=== PATIENT | female | born 1970 | race African-American/Black ===

== ENCOUNTER 2017-08-11 12:57 | Inpatient (IN) | payer OTHER ==
[~2017-08-11] VITALS: Ht 157.5 cm; Wt 83.0 kg
--- NOTE | ~2017-08-11 | A ---
[facility] Nutrition Therapy DATE: 08/13/17 Patient: CYNDIE VERDUGO Physician: CANDICE Address: [facility] Room/Bed: [address] [place] [address], Zip: [place] [address] Admit Date: 08/11/17 Date of : [birth year] Height: 5 2 Weight: [phone] NUTRITIONAL ASSESSMENT: REASON: PT SEEN FOR 1 NUTRITION RISK POINT RELATED TO CHEWING/SWALLOWING DIFFICULTY. ADMITTED FOR PARANOID SCHIZOPHRENIA, SI, DRUG USE PMH: SI, HTN, DM, HX OF SZ Anthropometrics: PT IS 47 YO FEMALE. HT: 5'2", WT: 183LBS, BMI 33. IBW 110, 166%IBW Labs: NONE AVAILABLE Meds: PROTONIX, SEROQUEL, NOVOLOG, DILANTIN, LOPRESSOR Assessment: PT REPORTS USING CRACK DAILY. PT IS HAVING AUDITORY AND VISUAL HALLUCINATIONS. PT COMPLAINS OF NOT BEING ABLE TO EAT VERY WELL DUE TO MISSING TEETH. SHE REPORTS EATING ONLY SOME OF HER MEALS. PER CHART, PT HAS LOST 10LBS X MONTHS. PT IS ON CCD AND IS LACTOSE INTOLERANT. Dx: INADEQUATE ORAL INTAKE R/T INABILITY TO EAT AEB PT COMPLAINT OF TROUBLE EATING, PT'S LACK OF TEETH Intervention: CC DIET, SUPPLEMENTS, MEDS PER MD, PSYCH Monitoring, Evaluation and Goals: 1. ADEQUATE ORAL INTAKE OF MEALS >50% 2. PREVENT SIGNIFICANT WEIGHT LOSS MONITOR: PO/FLUID INTAKE, WEIGHT Recommendations: 1. DOWNGRADE DIET TO MECHANICAL SOFT 2. RD TO ORDER STRAWBERRY OR CHOCOLATE GLUCERNA TID 3. ENCOURAGE ADEQUATE PO INTAKE RD TO FOLLOW UP PER PROTOCOL AND PRN RELATED TO PT ON MILD NUTRITION RISK Respectfully, MARIA LUZ BLUE, RD, LD [employer] [facility] Nutrition Therapy DATE: 08/13/17 Patient: CYNDIE VERDUGO Physician: CANDICE Address: [facility] Room/Bed: [address], Zip: [place] [address] Admit Date: 08/11/17 Date of : [birth year] Height: 5 2 Weight: [phone] [facility] cc: client file
--- NOTE | ~2017-08-11 | HP ---
Unit #: [id number] #: [id number] Patient: NANETTE VERDUGO [id number] [place] [address] [id number] MR#: [id number] NAME: NANETTE VERDUGO ROOM: P254 Age: 47 Sex: F Admission Date: 08/11/2017 : 1970 Attending Physician: Maxime Yan M.D. Admitting Physician: Maxime Yan M.D. Primary Care Physician: Samira Doctor Not In System HISTORY AND PHYSICAL HISTORY OF PRESENT ILLNESS Nanette is a 47 year old admitted to [address] [place] [address] because of her drug use which includes crack cocaine. PAST MEDICAL HISTORY 1. Long history of illicit substance abuse to include crack cocaine. 2. Morbid obesity. 3. High blood pressure. 4. Diabetes mellitus, type 2. 5. COPD. PAST SURGICAL HISTORY Nothing reported. ALLERGIES Penicillin, sulfa, Darvocet, aspirin, ibuprofen, lactose, Keflex, Flexeril. SOCIAL HISTORY She does not smoke, drinks alcohol on occasion. Admits to using crack cocaine on a daily basis. FAMILY HISTORY Medically noncontributory. REVIEW OF SYSTEMS CONSTITUTIONAL: No fever or chills. HEENT: Denies any sore throat, ear pain or runny nose. CARDIOVASCULAR: Denies chest pain, irregular heart rhythm or palpitations. CHEST: Denies shortness of breath or cough. No hemoptysis. GASTROINTESTINAL: Denies nausea, vomiting, diarrhea or chronic constipation. ENDOCRINE: Denies history of increased thirst or urination. No recent significant weight loss or gain. GENITOURINARY: Denies dysuria, frequency, or hematuria. SKIN: Denies any rashes. HEMATOLOGIC: Denies history of increased bleeding or bruising. MUSCULOSKELETAL: Denies any hot, swollen joints. No generalized muscle pain. NEUROLOGIC: Denies problems with vision or speech. No frequent, severe headaches. No numbness, tingling or weakness in any extremities. Denies loss of bladder or bowel control. Unit #: [id number] #: [id number] Patient: NANETTE VERDUGO CURRENT MEDICATIONS 1. Protonix 40 mg q day 2. Seroquel 200 mg q h.s. 3. Lopressor 50 mg b.i.d. 4. Zestril 20 mg b.i.d. 5. Dilantin 100 mg q.i.d. 6. Proventil inhaler p.r.n. 7. Milk of Magnesia p.r.n. 8. Maalox p.r.n. 9. Neurontin 800 mg t.i.d. 10. Norvasc 5 mg q day PHYSICAL EXAMINATION GENERAL: Alert, morbidly obese, in no apparent distress. VITAL SIGNS: Blood pressure 186/110, heart rate 70, respirations 16, temperature 98.6. WEIGHT: 183. HEIGHT: 5 foot 2 inches. SKIN: Warm and dry without rash or lesion. HEENT: Normocephalic. TMs not viewed. Oral and nasal passages clear. Conjunctivae clear. Pupils equal, round and reactive to light and accommodation. Extraocular movements intact. NECK: Supple without lymphadenopathy or thyromegaly. HEART: Regular rate and rhythm without murmur. LUNGS: Clear. ABDOMEN: Soft, nontender. : Not done. EXTREMITIES: No evidence of cyanosis, clubbing or edema. Moves all extremities without focal deficit. NEUROLOGICAL: Grossly within normal limits. Cranial Nerves: II: Visual ruth are intact. III, IV AND : Extraocular movements are intact. Pupils are equal, round and reactive to light. V: Facial sensation is grossly normal. VII: Facial movements and expression are normal. VIII: Auditory acuity grossly intact. IX, X: Uvula is midline. Phonation is normal. XI: Patient shrugs shoulders and turns head normally. XII: Tongue protrudes in the midline. Sensory and Motor Function: Sensory and motor sensation is grossly normal. Motor: moves all extremities well. Coordination: Gait is normal. Deep Tendon Reflexes: Intact. IMPRESSION 1. Psychiatric admission. 2. High blood pressure, not controlled on admission. I suspect she has been noncompliant with her medications. 3. Seizure disorder. RECOMMENDATIONS PSYCHIATRIC: Per psychiatrist. MEDICAL: 1. I see no contraindications to participating in facility's activities. 2. Continue Lopressor, Zestril and Norvasc. Monitor blood pressure q shift. 3. Continue Dilantin. Check a Dilantin level. 4. Start Glucophage XL 500 mg 1 p.o. q day. Unit #: [id number] #: [id number] Patient: NANETTE VERDUGO MEDICAL PROGNOSIS Good. MEDICAL CONDITION Stable. Dictated by... Alexa Zaragoza P.A.-C. for Kayode Hairston/aiyana TD: 08/12/2017 19:29 JOB #: [id number] HISTORY AND PHYSICAL Page 1 of 1 X Alexa Zaragoza X HISTORY AND PHYSICAL
--- NOTE | ~2017-08-11 | PN ---
Unit #: [id number] #: [id number] Patient: CYNDIE VERDUGO [id number] [facility] [address] [place] [address] [id number] MR#: [id number] NAME: CYNDIE VERDUGO ROOM: P254 Age: 47 Sex: F Admission Date: 08/11/2017 : 1970 Attending Physician: Maxime Yan M.D. Admitting Physician: Maxime Yan M.D. Primary Care Physician: Samira Doctor Not In System MATT PROGRESS NOTES DATE 08/13/2017 DISCUSSION The patient today complains of the quality of food served at this facility yet demands that she be given double portions at the same time. The patient continues to use a wheelchair in spite of the fact that she has been ordered not to do so, we will take the patient's wheelchair away. She is, today, expressing interest in residential chemical dependence treatment related to her history of crack cocaine use and I will ask the public health social worker to see her regarding this at the same time. I have taken time today to redirect the patient's expectations of inpatient care, particularly with regards to the patient's homeless status. Dictated by... Maxime Yan M.D. CB/regla TD: 08/13/2017 13:18 JOB #: [id number] [facility] PROGRESS NOTES Page 1 of 1 X Maxime Yan MD X PROGRESS NOTE
--- NOTE | ~2017-08-11 | PA ---
Unit #: [id number] #: [id number] Patient: CYNDIE VERDUGO [id number] [facility] [address] [place] [address] [id number] I MR#: [id number] NAME: CYNDIE VERDUGO ROOM: P254 Age: 47 Sex: F Admission Date: 08/11/2017 : 1970 Date of Assessment: 08/12/2017 Attending Physician: Maxime Yan M.D. Admitting Physician: Maxime Yan M.D. Primary Care Physician: Generic Doctor Not In System PSYCHIATRIC ASSESSMENT IDENTIFYING INFORMATION The patient is a 47-year-old homeless female admitted in transfer from [place] where she had presented voicing thoughts of suicide. CHIEF COMPLAINT "I need to get back on my medicine." INFORMANT(S) Patient and chart, reliability good. HISTORY OF PRESENT ILLNESS The patient is a 47-year-old homeless female who carries a diagnosis of schizophrenia. She has been off her medications sometime per her report. This occurred after the patient was evicted from the apartment. She had occupied in [place], [place], earlier this year. She is now homeless and living in a halfway in [place]. The patient reports that she was having suicidal ideation at the time of admission, but is now reporting reduction in suicidal ideation and auditory hallucinations with reinitiation of medications. The patient also complains of severe back pain and requests initiation of "Percocet" to address. The patient denies recent changes in sleep or appetite. She has been psychiatrically hospitalized as a child at this facility in the past and was hospitalized at the psychiatric facility in [place] "several years ago." She admits to abuse of cocaine and cannabis on a daily basis stating that she is spending up to 150 dollars a day on cocaine. PAST PSYCHIATRIC HISTORY As above. PAST MEDICAL HISTORY The patient suffers from seizure disorder, diabetes mellitus, GERD, and hypertension. MEDICATIONS Dilantin, lisinopril, metoprolol, gabapentin, Prilosec, amlodipine, Seroquel, NovoLog. ALLERGIES Acetaminophen, penicillin, sulfa, Darvocet, aspirin, Keflex, ibuprofen, Flexeril, peanuts, butter, bee stings. FAMILY HISTORY Unit #: [id number] #: [id number] Patient: CYNDIE VERDUGO The patient has several family members who are on renal dialysis. SOCIAL HISTORY The patient is currently homeless and residing in a homeless halfway in [place]. SUBSTANCE ABUSE HISTORY Described previously. MENTAL STATUS EXAMINATION Examination at this time reveals the patient to be a disheveled female who is in a wheelchair. The patient is awake, alert, and oriented in all spheres. Her mood is mildly dysphoric, her affect constricted. Speech is generally well-coherent. No gross deficits in memory or cognition noted. Intelligence is judged to be in the average range based on fund of knowledge. The patient is cooperative throughout the interview. She is currently denying suicidal or homicidal ideation or psychotic features. Judgment and insight appear to be reasonably intact. ASSETS AND LIABILITIES The patient's assets: Motivation for change. Liabilities: Lack of resources. DIAGNOSTIC IMPRESSION 1. Chronic paranoid schizophrenia. 2. Cocaine use disorder. 3. Cannabis use disorder. 4. Diabetes mellitus. 5. Hypertension. 6. Gastroesophageal reflux disease. 7. Degenerative disk disease. 8. Seizure disorder. TREATMENT PLAN The patient remains hospitalized for safety and stabilization. Suicide precautions are in place. I will restart the patient's previously prescribed medications, and Naprosyn will be added on a scheduled basis for back pain. ESTIMATED LENGTH OF STAY 3 to 5 days. The followup will take place through the auspices of community mental health resources in the [facility]. Dictated by... Maxime Yan M.D. MATTHEW/celena TD: 08/12/2017 14:34 JOB #: [id number] Unit #: [id number] #: [id number] Patient: CYNDIE VERDUGO PSYCHIATRIC ASSESSMENT Page 1 of 1 X Maxime Yan MD X PSYCHIATRIC ASSESSMENT
--- NOTE | ~2017-08-11 | DS ---
Unit #: [id number] #: [id number] Patient: CYNDIE VERDUGO [id number] [facility] [address] [place] [address] [id number] MR#: [id number] NAME: CYNDIE VERDUGO ROOM: P254 Age: 47 Sex: F Admission Date: 08/11/2017 : 1970 Discharge Date: 08/13/2017 Attending Physician: Maxime Yan M.D. Primary Care Physician: Generic Doctor Not In System DISCHARGE SUMMARY REASON FOR ADMISSION The patient is a 47-year-old white female, admitted to the [facility] [place] [facility] unit after she had presented to [facility] in [place] claiming to be suicidal. HOSPITAL COURSE The patient was admitted to the [facility] [place] [facility] unit and restarted on previously prescribed home medications including Seroquel, Proventil, Dilantin, Zestril, Lopressor, Neurontin, Protonix, Norvasc, Accu-Cheks, and NovoLog. The patient insisted on using a wheelchair, but this was discontinued given the lack of medical necessity. On 08/13/2017, the patient complained of the quality and quantity of food provided, and when she learned that she would no longer be allowed to use the wheelchair, demanded discharge from the hospital. She was not at that point exhibiting any signs of psychosis and denied suicidal ideation. As per her request, discharge was ordered. FINAL DIAGNOSES Cocaine use disorder; chronic paranoid schizophrenia per patient's history; seizure disorder; hypertension; degenerative disk disease; gastroesophageal reflux disease; and diabetes mellitus. DISPOSITION ON DISCHARGE The patient is discharged on the following medications; Proventil HFA 2 puffs q.4 hours p.r.n. shortness of air, Dilantin 100 mg q.i.d. for seizure disorder, Zestril 20 mg b.i.d. for hypertension, Lopressor 50 mg b.i.d. for hypertension, Neurontin 800 mg t.i.d. daily for chronic pain, Protonix 40 mg daily for GERD, Norvasc 5 mg daily for hypertension, Accu-Cheks as ordered for diabetic management, NovoLog sliding scale for diabetic management, and Seroquel 200 mg at bedtime for psychosis. DISCHARGE INSTRUCTIONS No dietary or physical restrictions were placed upon the patient at the time of discharge. FOLLOWUP Followup will take place through the auspices of community mental health resources in the [facility]. Dictated by.Lorelei Yan M.D. Unit #: [id number] #: [id number] Patient: CYNDIE VERDUGO MATTHEW/zully TD: 08/13/2017 19:42 JOB #: [id number] DISCHARGE SUMMARY Page 1 of 1 X Maxime Yan MD X DISCHARGE SUMMARY
[2017-08-12 13:03] LABS: URINE APPEARANCE TURBID; URINE BILIRUBIN NEG (NEG); URINE BLOOD NEG (NEG); URINE COLOR YELLOW; URINE GLUCOSE 100 MG/DL (NEG); URINE KETONE NEG (NEG); URINE LEUKOCYTE ESTERASE NEG (NEG); URINE NITRATE NEG (NEG); URINE PH 5.5 (5-8); URINE PROTEIN NEG (NEG); URINE SPECIFIC GRAVITY 1.025 (1.003-1.035); URINE UROBILINOGEN 0.2 MG/DL (NEG)
[2017-08-12 13:43] LABS: AMPHETAMINE NEG (NEG); BARBITURATES NEG (NEG); BENZODIAZEPINES NEG (NEG); COCAINE POS (NEG); MARIJUANA NEG (NEG); OPIATES NEG (NEG); TRICYCLIC ANTIDEPRESSANTS NEG (NEG); U METHADONE NEG (NEG)
[2017-08-13 12:38] LABS: BASOPHIL# 0.1 X10e3 (0-0.3); BASOPHIL% 0.4 % (0-2.5); EOSINOPHIL# 0.2 X10e3 (0-0.7); EOSINOPHIL% 1.5 % (0.0-7.0); HEMATOCRIT 36.1 % (35.0-45.0); HEMOGLOBIN 11.5 gm/dL (12.0-16.0); LYMPHOCYTE# 2.5 X10e3 (1.0-3.5); LYMPHOCYTE% 19.7 % (17.0-45.0); MEAN CELL VOLUME 89.9 FL (83-96); MEAN CORPUSCULAR HEMOGLOBIN 28.5 PG (28-34); MEAN CORPUSCULAR HGB CONC 31.8 g/dL (30-36); MEAN PLATELET VOLUME 9.1 FL (6.5-11.5); MONOCYTE# 0.8 X10e3 (0-1.0); MONOCYTE% 6.2 % (3.0-12.0); NEUTROPHIL# 9.1 X10e3 (1.5-7.1); NEUTROPHIL% 72.2 % (40-75); PLATELET COUNT 330 X10e3 (140-420); RED BLOOD COUNT 4.01 X10e (3.90-5.30); RED CELL DISTRIBUTION WIDTH 15.5 % (11.0-15.5); WHITE BLOOD COUNT 12.6 X10e3 (4.0-10.5)
[2017-08-13 12:47] LABS: DIFF IND NO
[2017-08-13 12:53] LABS: ALBUMIN SERUM 3.1 g/dL (3.5-5.0); BILIRUBIN,TOTAL 0.2 mg/dL (0.2-2.0); CALCIUM SERUM 8.9 mg/dL (8.4-10.2); DILANTIN (PHENYTOIN) 2.9 ug/mL (10.0-20.0); GLOM FILT RATE Estimated 77.2 mL/min (>60); POTASSIUM 4.3 mmol/L (3.5-5.1); PROTEIN TOTAL SERUM 5.7 g/dL (6.0-8.3)
== END 2017-08-13 14:30 | disposition home or self-care (01) | DRG 885 ==
LOC: P2L 15:41
PROVIDERS: Specialist
PROC: HZ2ZZZZ Detoxification Services for Substance Abuse Treatment (ICD-10-PCS; principal; 2017-08-12)
DX: F20.0 Paranoid schizophrenia (principal); E11.9 Type 2 diabetes mellitus without complications; I10 Essential (primary) hypertension; F14.10 Cocaine abuse, uncomplicated; F12.10 Cannabis abuse, uncomplicated; K21.9 Gastro-esophageal reflux disease without esophagitis; G40.909 Epilepsy, unspecified, not intractable, without status epilepticus; Z88.0 Allergy status to penicillin; Z88.2 Allergy status to sulfonamides
CPT/HCPCS: 80053; 80185; 80307; 81003; 82947; 84703; 85025